=== PATIENT | female | born 1995 | race African-American/Black ===

== ENCOUNTER 2021-05-11 23:57 | Emergency (ER) | payer OTHER, SELFPAY ==
[2021-05-12 00:11] VITALS: BP 131/81; PULSE 112; RESP 18; O2SAT 98; BMI 32.9
--- NOTE | 2021-05-12 00:40 | ED.URI ---
HPI - URI/Sore Throat General Chief Complaint: Upper Respiratory Symptoms Stated Complaint: sorethroat Time Seen by Provider: 05/12/21 00:37 Source: patient Mode of arrival: ambulatory Limitations: no limitations History of Present Illness HPI Narrative: 25 yo female presenting with sore scatchy throat for the last 2 days. She has a mild dry cough. She recently got out of group home. She was given her COVID vaccinations in group home. She has no fever or chills. No SOB Or chest pain. She is asking to leave the ER to go smoke a cigarette. MD elicited complaint: sore throat Onset (ago): day(s) (2) Consistency: intermittent Severity: mild Able to tolerate fluids by mouth: Yes Exacerbating factors: swallowing Relieving factors: nothing Associated symptoms: cough Treatments prior to arrival: none Related Data Allergies Allergy/AdvReac Type Severity Reaction Status Date / Time No Known Allergies Allergy Verified 05/12/21 00:10 Review of Systems Constitutional: Constitutional: Denies chills, Denies fever(s) and Denies headache(s) Eyes: Eyes: Reports no additional eye complaints ENT: Reports Normal hearing present, Denies facial pain, Denies headache(s), Denies mouth pain, Denies neck pain, Reports sore throat and Denies throat swelling Cardiovascular: Cardiovascular: Denies chest pain and Denies dyspnea Respiratory: Respiratory: Reports change in phlegm color, Denies chest congestion, Reports cough, Denies pain on inspiration, Denies pain with cough, Denies dyspnea and Denies wheezing Gastrointestinal: Gastrointestinal: Denies abdominal pain, Denies nausea and Denies vomiting Musculoskeletal: Musculoskeletal: Denies neck pain Neurologic: Reports Normal hearing present and Denies headache(s) Allergic/Immunologic: Allergic/Immunologic: Denies throat swelling and Denies wheezing PMFSH Social History Social History Advance Directives: No Advance Directives Information Provided: No Patient : No Physical Exam Vital Signs: Vital Signs: Last Vital Signs Pulse 112 H 05/12/21 00:11 Resp 18 05/12/21 00:11 BP 131/81 05/12/21 00:11 Pulse Ox 98 05/12/21 00:11 Body Mass Index 32.9 Const: General: intoxicated appearing and poor hygiene Nutritional Appearance: average body habitus and well nourished Orientation/consciousness: patient oriented x3 Limitations: no limitations HENMT: Head: Yes normal to inspection Ears: hearing grossly normal bilaterally and external ears normal General nose exam: Normal external nose present Face and sinus: Yes normal facial exam and Yes face symmetric Mouth: Normal oral and palatal mucosa present, lip normal and tongue normal Teeth and gingiva: caries Throat: Yes uvula midline and Yes posterior oropharynx abnormal (mild generalized erythema, no tonsillar exudates or swelling) Eyes: General: appearance normal, both eyes and all related structures Neck: Neck: Yes normal visual inspection Chest: Chest palpation & inspection: normal inspection of the chest Resp: Effort & Inspection: normal respiratory effort and able to speak in complete sentences Auscultation: clear to auscultation bilaterally Cardio: Rate: tachycardic Rhythm: regular rhythm Heart sounds: S1 normal heart sound present and S2 normal heart sound present Neuro: General: patient oriented x3 and gait normal Cranial nerves: Yes Normal hearing present Gait exam (Neuro): Normal gait present Extrem: General: Yes normal to inspection Psych: Appearance: disheveled Speech and movement: Other speech and movement exam findings present (Psych) (restless and wanting to leave, pacing) Course Course Course Narrative: 25 y/o female presenting with sore throat x2 days. Exam is unremarkable. Tolerating PO. No fevers. She is asking to leave to go smoke. COVID and strep pending. Agreeable to wait 10 more minutes. Reevaluation(s) Reevaluation #1: COVID and strep are negative. Stable for d/c home. Discharge Plan Discharge Clinical Impression: Pharyngitis Qualifiers: Pharyngitis/tonsillitis etiology: unspecified etiology Qualified Code(s): J02.9 - Acute pharyngitis, unspecified Patient Disposition: Home, Self-Care Instructions: Pharyngitis (ED) Additional Instructions: You were negative for COVID and Strep throat. Use warm salt water gargles several times per day. Use over the counter Chloraseptic spray as needed for sore throat. Take Tylenol and/or Motrin as needed. If you develop new or worsening symptoms call 911 or come back to the ER for further evaluation.
[2021-05-12 00:45] LABS: COVID-19 Test Negative (Negative); IDNOW Serial# 08D9AD1C; IDNOW Serial# 9DD0AD1C; Strep A Nucleic Acid Negative (Negative)
[2021-05-12 00:54] LABS: UPreg QC Valid YES; Urine Pregnancy NEGATIVE (NEGATIVE)
== END 2021-05-12 00:56 | disposition home or self-care (01) ==
PROVIDERS: Physician Assistant; Emergency Provider Emergency Medicine
DX: J02.9 Acute pharyngitis, unspecified (principal); R05 Cough; Z20.822 Contact with and (suspected) exposure to COVID-19
CPT/HCPCS: 36415; 81025; 87635; 87651; 99283; 99284